=== PATIENT | female | born 1960 | race Caucasian/White ===

== ENCOUNTER 2021-02-28 04:28 | Emergency (ER) | payer OTHER ==
[~2021-02-28] VITALS: Ht 160 cm; Wt 68.2 kg
[2021-02-28 04:38] VITALS: BP 142/94
[2021-02-28] MEDS ORDERED: ONDA4TAB6 PO (04:52)
[2021-02-28] MEDS ORDERED: ondansetron 4mg rapidly disintigrating tab PO ONE (04:55)
== END 2021-02-28 05:06 | disposition home or self-care (01) ==
LOC: ER 04:30
DX: U07.1 COVID-19 (principal); R68.2 Dry mouth, unspecified; R05 Cough; R09.89 Other specified symptoms and signs involving the circulatory and respiratory systems; R11.0 Nausea; Z79.899 Other long term (current) drug therapy
CPT/HCPCS: 99283

== ENCOUNTER 2021-03-09 18:17 | Emergency (ER) | payer OTHER ==
[~2021-03-09] VITALS: Ht 160 cm; Wt 28.9 kg
[~2021-03-09 18:17] MED LIST: ONDA4TAB6 PO
[2021-03-09 18:57] LABS: BASOPHILS # (AUTO) 0.1 X10'3 (0-0.2); BASOPHILS % (AUTO) 1.1 % (0-1); EOSINOPHILS % (AUTO) 0.6 % (0-6); HEMATOCRIT 42.7 % (35.0-45.0); LYMPHOCYTES # (AUTO) 1.8 X10'3 (1.1-4.8); LYMPHOCYTES % (AUTO) 29.2 % (21-51); MEAN CORPUSCULAR HEMOGLOBIN 27.7 PG (27.0-31.0); MEAN CORPUSCULAR HGB CONC 32.8 g/dL (33.0-36.5); MEAN CORPUSCULAR VOLUME 84.5 FL (78-98); MEAN PLATELET VOLUME 7.7 FL (7.4-10.4); MONOCYTES # (AUTO) 0.7 X10'3 (0-0.9); MONOCYTES % (AUTO) 10.6 % (2-12); NEUTROPHILS # (AUTO) 3.7 X10'3 (1.8-7.7); NEUTROPHILS % (AUTO) 58.5 % (42-75); PLATELET COUNT 327 X10'3 (140-440); RED BLOOD COUNT 5.05 X10'6 (4.20-5.60); RED CELL DISTRIBUTION WIDTH 12.6 % (11.5-14.5); WHITE BLOOD COUNT 6.3 X10'3 (4.5-11.0)
[2021-03-09 19:12] LABS: ALANINE AMINOTRANSFERASE 29 U/L (12-78); ALBUMIN 3.3 G/DL (3.4-5.0); ALBUMIN/GLOBULIN RATIO 0.8 (1.1-1.5); ALKALINE PHOSPHATASE 110 IU/L (46-116); ANION GAP 7 (8-16); ASPARTATE AMINO TRANSFERASE 17 U/L (10-37); BILIRUBIN,TOTAL 0.2 MG/DL (0.1-1.0); BLOOD UREA NITROGEN 14 MG/DL (7-18); BUN/CREATININE RATIO 12.1 (6.6-38.0); CALCIUM 9.6 MG/DL (8.5-10.1); CHLORIDE 109 MMOL/L (99-107); CREATININE 1.16 MG/DL (0.40-0.90); GLUCOSE 105 MG/DL (70-104); LACTATE DEHYDROGENASE 210 U/L (81-234); POTASSIUM 4.3 MMOL/L (3.5-5.1); SODIUM 142 MMOL/L (135-145); TOTAL CARBON DIOXIDE 26.5 MMOL/L (24-32); TOTAL PROTEIN 7.4 G/DL (6.4-8.2); eGFR 48 ML/MIN
[2021-03-09] MEDS ORDERED: iohexol 350MG/ML 100ml bottle IV ONE (20:24)
[2021-03-09] MEDS: dexamethasone 4mg tablet PO ONE ×2 (22:44→22:45)
[2021-03-09] MEDS ORDERED: ALBU8HFA PO (23:24)
[2021-03-09] MEDS ORDERED: BENZ-16 PO (23:24)
[2021-03-09 23:39] VITALS: BP 142/89
== END 2021-03-09 23:41 | disposition home or self-care (01) ==
LOC: ER 18:17
DX: U07.1 COVID-19 (principal); J12.82 Pneumonia due to coronavirus disease 2019; Z79.899 Other long term (current) drug therapy
CPT/HCPCS: 36415; 71045; 71275; 80053; 83615; 85025; 93005; 99285; Q9967